=== PATIENT | female | born 1955 | race Caucasian/White ===

== ENCOUNTER 2021-02-01 02:19 | Outpatient (CLI) | payer MEDICARE, SELFPAY ==
[2021-02-01 12:17] LABS: Source Nasal/Nares
[2021-02-01 14:35] LABS: COVID-19 PCR Negative (Negative)
== END 2021-02-01 02:20 | disposition home or self-care (01) ==
LOC: LBO 02:20
PROVIDERS: PCP Registered Nurse; Visit Provider Ophthalmology
DX: Z20.822 Contact with and (suspected) exposure to COVID-19 (principal); Z01.818 Encounter for other preprocedural examination
CPT/HCPCS: 87635

== ENCOUNTER 2021-02-03 10:18 | Day surgery (SDC) | payer MEDICARE, BC, SELFPAY ==
[2021-02-03 10:53] VITALS: BP 151/84; PULSE 60; RESP 16; TEMP 36.5; O2SAT 16
[2021-02-03] MEDS: Tropicam./Phenyleph. (1/2.5%) 5 ML BTL OD ×3 (11:07→11:19)
--- NOTE | 2021-02-03 12:07 | W.ANESPRE ---
General Info Date of Service Date Performed: 02/03/21 Height: 5 ft 6.5 in Weight: 96.1 kg Body Mass Index (BMI): 33.7 Surgical Procedure: Operation Date: 02/03/21 13:40 Proposed Procedures Side Surgeon p Cataract Extraction with IOL Implant Right Yifan Burks MD Meds Allergies and Home Medications Allergies Allergy/AdvReac Type Severity Reaction Status Date / Time No Known Allergies Allergy Unverified 02/02/21 11:48 Home Medication Medication Instructions Recorded diclofenac potassium 50 mg PO TID 02/01/21 metoprolol succinate 100 mg PO DAILY 02/01/21 simvastatin 20 mg PO DAILY 02/01/21 hydrochlorothiazide 25 mg PO DAILY 02/02/21 aspirin 81 mg PO DAILY 02/03/21 Current Visit Medications: Current Medications Generic Name Dose Route Start Last Admin Trade Name Freq PRN Reason Stop Dose Admin Acetaminophen 1,000 mg 02/03/21 06:00 Acetaminophen 500 Mg Tab PO Q4H PRN PRN Miscellaneous Medication 0 ml 02/03/21 06:00 Prednisolone 1%, Moxifloxacin 0.5%, Nepafenac 0.1% 5ml Btl OD DIRECTED [facility] Miscellaneous Medication 0 ml 02/03/21 06:00 02/03/21 11:19 Tropicam./Phenyleph. (1/2.5%) 5 Ml Btl OD 1 drp DIRECTED CESAR Administration Tetracaine HCl 0 ml 02/03/21 06:00 Tetracaine 0.5% 4 Ml Btl OD DIRECTED CESAR PFSH Medical History Medical History Ex-smoker HLD (hyperlipidemia) Hypertensive disorder Macular degeneration Pain in left knee Palpitations Plantar fasciitis of right foot ST segment changes on electrocardiogram Surgical History Surgical History Hx of appendectomy Hx of tubal ligation Tobacco Smoking/Tobacco Use Status: Former Tobacco Use Alcohol Alcohol Intake: current Alcohol intake frequency: 0-2 drinks per day Alcohol type: wine Substance Use Substance use type: does not use Vital Signs and Lab Results Vital Signs Most Recent Vital Signs in EMR: Most Recent Vital Signs Temp Pulse Resp BP Pulse Ox 36.5 C 60 16 151/84 H 16 L 02/03/21 10:53 02/03/21 10:53 02/03/21 10:53 02/03/21 10:53 02/03/21 10:53 Lab Results Blood Type / Crossmatch: No Data to Display Complete Blood Count: No Data to Display Complete Metabolic Panel: No Data to Display Liver Function Panel: No Data to Display Coagulation Panel: No Data to Display Cardiac Panel: No Data to Display Arterial Blood Gas: No Data to Display Venous Blood Gas: No Data to Display Pancreas Panel: No Data to Display Thyroid Panel: No Data to Display Infectious Disease: Coronavirus (COVID-19)(PCR) Negative (Negative) 02/01/21 10:25 02/01/21 Coronavirus 2019 Source Nasal/Nares 02/01/21 10:25 02/01/21 Blood Cultures: No Data to Display Toxicology Panel: No Data to Display Anesthesia Assessment and Plan Anesthesia History Personal History: No History of Anesthesia Complications Family History: No Family History of Anesthesia Complications Exercise Tolerance Exercise Tolerance: Metabolic Equivalents>4 Pertinent Negatives Pertinent Negatives: No Symptoms of GERD, No Major Cardiovascular Symptoms or Complaints and No Major Pulmonary Symptoms or Complaints Cardiac & Pulmonary Exam Cardiac Exam: Normal S1/S2 Heart Sounds Pulmonary Exam: Clear Bilateral Breath Sounds Implantable Cardiac Device Does patient have a Pacemaker or an ICD?: No Airway Exam Known Difficult Airway: No Mallampati Class: 1 Mouth Opening: Normal (> 3cm) Thyromental Distance: Greater than 3 cm Facial Hair: Full [place] Range of Motion: Full ROM Neck Circumference: Normal Teeth Condition: Normal Dentition ASA Classification ASA Score: ASA 2 Emergency Case?: No NPO Status NPO Status: NPO Clears >2 hours, Solids >8 hours Anesthesia Plan Resuscitation Status: Full Code Anesthesia Technique: MAC Anesthesia Airway Planned: Natural Airway Monitors Used: Standard Monitors
[2021-02-03 12:19] VITALS: BMI 33.7
[2021-02-03] MEDS: Tetracaine 0.5% 4 ML BTL OD (12:53)
[2021-02-03] MEDS: Balanced Salt Soln.-PLUS 500 ML BAG (12:54)
[2021-02-03] MEDS: Duovisc Viscoelastic System EACH 1 EACH (12:55)
[2021-02-03] MEDS: Lidocaine 2% Jelly 6 ML SYR (12:56)
[2021-02-03] MEDS: Povidone-Iodine Ophth 30 ML BTL (12:59)
[2021-02-03 13:08] VITALS: BP 134/78; PULSE 63; RESP 16; TEMP 36.8; O2SAT 95
--- NOTE | 2021-02-03 13:08 | W.PM.DSUDISC ---
Discharge Plan Disposition Patient Disposition: HOME Condition: Good Discharge Details Attending Provider: Yifan Burks Primary Care Provider: Alka Singh Home Meds and New Rx's Prescriptions: No Action metoprolol succinate 100 mg Tablet Extended Release 24 Hr 100 mg PO DAILY RF: 0 simvastatin 20 mg Tablet 20 mg PO DAILY RF: 0 diclofenac potassium 50 mg Tablet 50 mg PO TID RF: 0 hydrochlorothiazide 25 mg Tablet 25 mg PO DAILY RF: 0 aspirin 81 mg Tablet 81 mg PO DAILY RF: 0 Discharge Instructions Stand Alone Forms: Post-op Topical Cataract, Hannah Ronquillo ([facility]U) Discharge Orders Discharge Orders: Discharge Order (Routine); Ordered 02/03/21 Ordered By: Yifan Burks DS: Diagnosis Discharge Diagnosis (1) Cortical cataract of right eye: Status: Resolved (2) Nuclear sclerotic cataract of right eye: Status: Resolved (3) Posterior subcapsular age-related cataract, right eye: Status: Resolved
--- NOTE | 2021-02-03 13:11 | ROE_ITS ---
Date of service: 02/03/21 Time of Service: 13:11 Operative Note Operative Note DATE OF PROCEDURE: 02/03/21 PRE-OP DIAGNOSIS: Nuclear/cortical/posterior subcapsular cataract, right eye POST-OP DIAGNOSIS: same PROCEDURE: Cataract extraction using phacoemulsification with intraocular lens implant, right eye SURGEON: Yifan Burks ANESTHESIA TYPE: Local By Surgeon and MAC Refer to Anesthesia Record ESTIMATED BLOOD LOSS: 0 PATHOLOGY: none sent COMPLICATIONS: None Patient was transported to: same day Patient's condition: stable Implants: Alireza & Alireza/LUCIE Tecnis [id number] Indications: Progressive visual loss due to cataract, right eye Procedure Description: CATARACT SURGERY OPERATIVE REPORT PREOPERATIVE DIAGNOSIS: 1. Nuclear/cortical/posterior subcapsular cataract, right eye POSTOPERATIVE DIAGNOSIS: Same OPERATION: 1. Cataract extraction using phacoemulsification with posterior chamber intraocular lens implant, right eye. IOL: IOL Kids Activities Coach/Model: Alireza & Alireza / LUCIE Tecnis [id number] IOL Power: + 19.0 diopters IOL Serial Number: [id number] Optic Diameter: 6.0mm Haptic/Overall Diameter: 13.0mm PHACO INFO: [employer]is [employer] Vision System with OZil and Active Fluidics Cumulative Dispersed Energy (CDE): 12.48 seconds SURGEON: Yifan Burks MD, ISAURA ANESTHESIA: Monitored Anesthesia Care (MAC), with local sub-tenon's anesthetic infiltration COMPLICATIONS: None SPECIMENS: None INDICATIONS FOR PROCEDURE: The patient is a 65-year-old lady with history of diminished visual acuity in her right eye secondary to the development of nuclear/cortical/posterior subcataract. The option of cataract surgery was offered to the patient and she wished to proceed. PROCEDURE: The correct surgical eye was identified and marked as the right eye and the pupil was dilated in the preoperative area using mydriatics and cycloplegics. The dilated pupil size was 7.0 mm. Oral sedation was administered in the form of an Imprimis MKO Melt (midazolam 3mg/ketamine 25mg/ondansetron 2mg). The patient was brought to the operating room where cardiopulmonary monitoring was instituted and surgical time-out was performed, confirming the correct operative eye and IOL power. Topical anesthesia was administered and ophthalmic povidone-iodine 5% was instilled into the conjunctival fornices. Lidocaine gel was applied to the cornea and the deangelo-ocular area was prepped with Betadine 10% solution and draped in the usual sterile fashion for intraocular surgery, including an aperture drape. A Tegaderm transparent film dressing was cut in half and used to cover the lashes and lid margins. Care was taken to sequester the lashes and lid margins under the Tegaderm dressing. A lid speculum was placed between the lids of the operative eye and the Christiane[employer]Jose operating microscope was maneuvered into position. Tonya scissors were then used to make a conjunctival buttonhole approximately 6mm posterior to the limbus in the inferonasal quadrant. Blunt dissection was carried out to expose bare sclera, and a blunt-tipped sub-tenon?s anesthesia cannula was introduced and passed posteriorly along the globe where non- preserved plain lidocaine was injected into posterior sub-Tenon?s space. A sideport knife was used to make a paracentesis port inferotemporally. Intraocular phenylephrine/lidocaine was injected into the anterior chamber. The anterior chamber was filled with viscoelastic. A 2.4mm keratome knife was used to create a half-thickness groove at the limbus and then to construct a three- plane near-clear corneal tunnel extending 2.0mm into clear cornea superiortemporally. A flap was raised on the anterior capsule and capsulorhexis forceps were used to complete a continuous curvilinear capsulorhexis of 5.5 mm. Balanced salt solution was then used to perform cortical cleaving hydrodissection and nuclear hydrodelineation until the lens could be freely rotated within the capsular bag. The lens nucleus was then disassembled and removed within the capsular bag and iris plane using phacoemulsification. Residual cortical material was removed using the I/A handpiece. The posterior capsule was carefully polished to remove as much residual lens epithelial cells as safely possible. The capsular bag was then inflated and the anterior chamber deepened with viscoelastic. The lens implant described above was inserted into the capsular bag using the LUCIE [place] Injector. A Kuglen hook was used to dial the IOL into position. Residual viscoelastic was then removed first from posterior to the IOL, then from the anterior chamber using the I/A handpiece. The lens implant was noted to center nicely within the capsular bag. The incisions were stromally hydrated, and the anterior chamber was reformed using BSS. Then 0.5cc of moxifloxacin 1.0mg/ml were injected into the capsular bag and anterior chamber. The incisions were checked with a Weck spear and found to be secure. Several drops of ophthalmic povidone-iodine 5% were then applied to the eye followed by two drops of Imprimis combination prednisolone/moxifloxacin/nepafenac solution. The drapes were removed and a clear plastic protective eye shield was placed over the eye. The patient was then returned to Same Day Surgery in stable condition.
--- NOTE | 2021-02-03 13:38 | W.ANESPOSTOP ---
Postoperative Evaluation Date, Time and Location Date Performed: 02/03/21 Time Performed: 13:10 Patient Location: Day Surgery Unit Vital Signs Most Recent Imported Vital Signs: Most Recent Vital Signs Temp Pulse Resp BP Pulse Ox 36.8 C 63 16 134/78 95 02/03/21 13:08 02/03/21 13:08 02/03/21 13:08 02/03/21 13:08 02/03/21 13:08 Pain Score Most Recent Pain Score: Most Recent Pain Score Pain Level 0 02/03/21 10:53 Assessment Mental Status: Awake (Alert & Oriented to Patient Baseline) Airway and Respiratory Function: Patent airway with normal (patient baseline) respiratory exam Cardiovascular Function: Hemodynamically Stable Hydration Status: Adequately Hydrated Nausea & Vomiting: No Nausea or Vomiting Pain: Pt. Denies Any Pain Peripheral Nerve Block: Patient did not receive a nerve block
[2021-02-03 13:40] VITALS: BP 124/78; PULSE 65; RESP 16; TEMP 36.9; O2SAT 97
== END 2021-02-03 13:45 | disposition home or self-care (01) ==
PROVIDERS: PCP Registered Nurse; Visit Provider Ophthalmology
PROC: (CPT 66984; principal; 2021-02-03 13:30)
DX: H25.041 Posterior subcapsular polar age-related cataract, right eye (principal); I10 Essential (primary) hypertension; Z87.891 Personal history of nicotine dependence
CPT/HCPCS: 66984; V2632

== ENCOUNTER 2021-02-10 01:02 | Outpatient (CLI) | payer MEDICARE, BC, SELFPAY ==
[2021-02-10 11:12] LABS: Source Nasal/Nares
[2021-02-10 22:07] LABS: COVID-19 PCR Negative (Negative)
== END 2021-02-10 01:03 | disposition home or self-care (01) ==
LOC: LBO 01:03
PROVIDERS: PCP Registered Nurse; Visit Provider Ophthalmology
DX: Z20.822 Contact with and (suspected) exposure to COVID-19 (principal); Z01.818 Encounter for other preprocedural examination
CPT/HCPCS: 87635

== ENCOUNTER 2021-02-13 10:10 | Day surgery (SDC) | payer MEDICARE, BC, SELFPAY ==
[2021-02-13] MEDS: Tropicam./Phenyleph. (1/2.5%) 5 ML BTL OS ×3 (10:47→11:05)
[2021-02-13 10:59] VITALS: BP 146/96; PULSE 57; RESP 16; TEMP 36.6; O2SAT 98
--- NOTE | 2021-02-13 11:11 | W.ANESPRE ---
General Info Date of Service Date Performed: 02/13/21 Height: 5 ft 6.5 in Weight: 96 kg Body Mass Index (BMI): 33.6 Surgical Procedure: Operation Date: 02/13/21 13:40 Proposed Procedures Side Surgeon p Cataract Extraction with IOL Implant Left Yifan Burks MD Meds Allergies and Home Medications Allergies Allergy/AdvReac Type Severity Reaction Status Date / Time No Known Allergies Allergy Unverified 02/13/21 10:58 Home Medication Medication Instructions Recorded diclofenac potassium 50 mg PO TID 02/01/21 metoprolol succinate 100 mg PO DAILY 02/01/21 simvastatin 20 mg PO DAILY 02/01/21 hydrochlorothiazide 25 mg PO DAILY 02/02/21 aspirin 81 mg PO DAILY 02/03/21 Current Visit Medications: Current Medications Generic Name Dose Route Start Last Admin Trade Name Freq PRN Reason Stop Dose Admin Acetaminophen 1,000 mg 02/13/21 06:00 Acetaminophen 500 Mg Tab PO Q4H PRN PRN Miscellaneous Medication 0 ml 02/13/21 06:00 Prednisolone 1%, Moxifloxacin 0.5%, Nepafenac 0.1% 5ml Btl OS DIRECTED CESAR Miscellaneous Medication 0 ml 02/13/21 06:00 02/13/21 11:05 Tropicam./Phenyleph. (1/2.5%) 5 Ml Btl OS 1 drp DIRECTED CESAR Administration Tetracaine HCl 0 ml 02/13/21 06:00 Tetracaine 0.5% 4 Ml Btl OS DIRECTED CESAR PFSH Active Problems Active Problems: Problem Status Onset Code Posterior subcapsular age-related cataract, right eye H25.041 Nuclear sclerotic cataract of right eye H25.11 Cortical cataract of right eye H26.9 Medical History Medical History Ex-smoker HLD (hyperlipidemia) Hypertensive disorder Macular degeneration Pain in left knee Palpitations Plantar fasciitis of right foot ST segment changes on electrocardiogram Surgical History Surgical History Hx of appendectomy Hx of cataract surgery Hx of tubal ligation Tobacco Smoking/Tobacco Use Status: Former Tobacco Use Alcohol Alcohol Intake: current Alcohol intake frequency: 0-2 drinks per day Alcohol type: wine Substance Use Substance use type: does not use Vital Signs and Lab Results Vital Signs Most Recent Vital Signs in EMR: Most Recent Vital Signs Temp Pulse Resp BP Pulse Ox 36.6 C 57 L 16 146/96 H 98 02/13/21 10:59 02/13/21 10:59 02/13/21 10:59 02/13/21 10:59 02/13/21 10:59 Lab Results Blood Type / Crossmatch: No Data to Display Complete Blood Count: No Data to Display Complete Metabolic Panel: No Data to Display Liver Function Panel: No Data to Display Coagulation Panel: No Data to Display Cardiac Panel: No Data to Display Arterial Blood Gas: No Data to Display Venous Blood Gas: No Data to Display Pancreas Panel: No Data to Display Thyroid Panel: No Data to Display Infectious Disease: Coronavirus (COVID-19)(PCR) Negative (Negative) 02/10/21 10:40 02/10/21 Coronavirus 2019 Source Nasal/Nares 02/10/21 10:40 02/10/21 Blood Cultures: No Data to Display Toxicology Panel: No Data to Display Anesthesia Assessment and Plan Anesthesia History Personal History: No History of Anesthesia Complications Family History: No Family History of Anesthesia Complications Exercise Tolerance Exercise Tolerance: Metabolic Equivalents>4 Pertinent Negatives Pertinent Negatives: No Symptoms of GERD Cardiac & Pulmonary Exam Cardiac Exam: Normal S1/S2 Heart Sounds Pulmonary Exam: Clear Bilateral Breath Sounds Implantable Cardiac Device Does patient have a Pacemaker or an ICD?: No Airway Exam Known Difficult Airway: No Mallampati Class: 1 Mouth Opening: Normal (> 3cm) Thyromental Distance: Greater than 3 cm Neck Range of Motion: Full ROM Neck Circumference: Normal Teeth Condition: Normal Dentition ASA Classification ASA Score: ASA 2 Emergency Case?: No NPO Status NPO Status: NPO Clears >2 hours, Solids >8 hours Anesthesia Plan Resuscitation Status: Full Code Anesthesia Technique: MAC Anesthesia Airway Planned: Natural Airway Monitors Used: Standard Monitors Preoperative Comments:: Jyoti noble
[2021-02-13 11:13] VITALS: BMI 33.6
[2021-02-13] MEDS: Tetracaine 0.5% 4 ML BTL OS (11:54)
[2021-02-13] MEDS: Balanced Salt Soln.-PLUS 500 ML BAG (11:55)
[2021-02-13] MEDS: Povidone-Iodine Ophth 30 ML BTL (11:56)
[2021-02-13] MEDS: Duovisc Viscoelastic System EACH 1 EACH (11:56)
[2021-02-13] MEDS: Lidocaine 2% Jelly 6 ML SYR (11:57)
[2021-02-13 12:14] VITALS: BP 108/82; PULSE 64; RESP 16; TEMP 36.5; O2SAT 96
--- NOTE | 2021-02-13 12:15 | W.PM.DSUDISC ---
Discharge Plan Disposition Patient Disposition: HOME Condition: Good Discharge Details Attending Provider: Yifan Burks Primary Care Provider: Alka Singh Home Meds and New Rx's Prescriptions: No Action metoprolol succinate 100 mg Tablet Extended Release 24 Hr 100 mg PO DAILY RF: 0 simvastatin 20 mg Tablet 20 mg PO DAILY RF: 0 diclofenac potassium 50 mg Tablet 50 mg PO TID RF: 0 hydrochlorothiazide 25 mg Tablet 25 mg PO DAILY RF: 0 aspirin 81 mg Tablet 81 mg PO DAILY RF: 0 Discharge Instructions Stand Alone Forms: Post-op Topical Cataract, Hannah Ronquillo ([facility]U) Discharge Orders Discharge Orders: Discharge Order (Routine); Ordered 02/13/21 Ordered By: Yifan Burks DS: Diagnosis Discharge Diagnosis (1) Cortical cataract of left eye: Status: Resolved (2) Nuclear sclerotic cataract of left eye: Status: Resolved
--- NOTE | 2021-02-13 12:16 | ROE_ITS ---
Date of service: 02/13/21 Time of Service: 12:16 Operative Note Operative Note DATE OF PROCEDURE: 02/13/21 PRE-OP DIAGNOSIS: Nuclear/cortical cataract, left eye POST-OP DIAGNOSIS: same PROCEDURE: Cataract extraction using phacoemulsification with intraocular lens implant, left eye SURGEON: Yifan Burks ANESTHESIA TYPE: Local By Surgeon and MAC Refer to Anesthesia Record PATHOLOGY: none sent COMPLICATIONS: None Patient was transported to: same day Patient's condition: stable Implants: Alireza and Alireza / [employer] Tecnis [id number] Indications: Progressive decreased vision due to cataract, left eye Procedure Description: CATARACT SURGERY OPERATIVE REPORT PREOPERATIVE DIAGNOSIS: 1. Nuclear/cortical cataract, left eye POSTOPERATIVE DIAGNOSIS: Same OPERATION: 1. Cataract extraction using phacoemulsification with posterior chamber intraocular lens implant, left eye. IOL: IOL Discharge Door Operator/Model: Alireza & Alireza / LUCIE Tecnis ZCB00 IOL Power: + 20.0 diopters IOL Serial Number: [id number] Optic Diameter: 6.0 mm Haptic/Overall Diameter: 13.0 mm PHACO INFO: [employer] Vision System with OZil and Active Fluidics Cumulative Dispersed Energy (CDE): 8.72 seconds SURGEON: Yifan Burks MD, ISAURA ANESTHESIA: Monitored A [facility] (MAC), with local sub-tenon's anesthetic infiltration COMPLICATIONS: None SPECIMENS: None INDICATIONS FOR PROCEDURE: The patient is a 66-year-old lady with history of diminished visual acuity in both eyes secondary to the development of bilateral nuclear cortical cataract. She has already undergone cataract surgery in the right eye and is doing well postoperatively. She now presents for cataract surgery in the left eye. PROCEDURE: The correct surgical eye was identified and marked as the left eye and the pupil was dilated in the preoperative area using mydriatics and cycloplegics. The dilated pupil size was 7.0 mm. Oral sedation was administered in the form of an Imprimis MKO Melt (midazolam 3mg/ketamine 25mg/ondansetron 2 mg). The patient was brought to the operating room where cardiopulmonary monitoring was instituted and surgical time-out was performed, confirming the correct operative eye and IOL power. Topical anesthesia was administered and ophthalmic povidone-iodine 5% was instilled into the conjunctival fornices. Lidocaine gel was applied to the cornea and the deangelo-ocular area was prepped with Betadine 10% solution and draped in the usual sterile fashion for intraocular surgery, including an aperture drape. A Tegaderm transparent film dressing was cut in half and used to cover the lashes and lid margins. Care was taken to sequester the lashes and lid margins under the Tegaderm dressing. A lid speculum was placed between the lids of the operative eye and the Christiane-Jose operating microscope was maneuvered into position. Tonya scissors were then used to make a conjunctival buttonhole approximately 6mm posterior to the limbus in the inferonasal quadrant. Blunt dissection was carried out to expose bare sclera, and a blunt-tipped sub-tenon?s anesthesia cannula was introduced and passed posteriorly along the globe where non- preserved plain lidocaine was injected into posterior sub-Tenon?s space. A sideport knife was used to make a paracentesis port superiorly/superiortemporally. Intraocular phenylephrine/lidocaine was injected int the anterior chamber.. The anterior chamber was filled with viscoelastic. A 2.4mm keratome knife was used to create a half-thickness groove at the limbus and then to construct a three-plane near-clear corneal tunnel extending 2.0mm into clear cornea at the 3:00 position. A flap was raised on the anterior capsule and capsulorhexis forceps were used to complete a continuous curvilinear capsulorhexis of 5.5 mm. Balanced salt solution was then used to perform cortical cleaving hydrodissection and nuclear hydrodelineation until the lens could be freely rotated within the capsular bag. The lens nucleus was then disassembled and removed within the capsular bag and iris plane using phacoemulsification. Residual cortical material was removed using the 45-degree angled silicone I/A tip with 0.3mm port. The posterior capsule was carefully polished to remove as much residual lens epithelial cells as safely possible. The capsular bag was then inflated and the anterior chamber deepened with viscoelastic. The lens implant described above was inserted into the capsular bag using the LUCIE [place] Injector. A Kuglen hook was used to dial the IOL into position. Residual viscoelastic was then removed first from posterior to the IOL, then from the anterior chamber using the I/A handpiece. The lens implant was noted to center nicely within the capsular bag. The incisions were stromally hydrated, and the anterior chamber was reformed using BSS. Then 0.5cc of moxifloxacin 1.0mg/ml were injected into the capsular bag and anterior chamber. The incisions were checked with a Weck spear and found to be secure. Several drops of ophthalmic povidone-iodine 5% were then applied to the eye followed by two drops of Imprimis combination prednisolone/moxifloxacin/nepafenac solution. The drapes were removed and a clear plastic protective eye shield was placed over the eye. The patient was then returned to Same Day Surgery in stable condition.
--- NOTE | 2021-02-13 12:18 | W.ANESPOSTOP ---
Postoperative Evaluation Date, Time and Location Date Performed: 02/13/21 Time Performed: 12:18 Patient Location: Day Surgery Unit Vital Signs Most Recent Imported Vital Signs: Most Recent Vital Signs Temp Pulse Resp BP Pulse Ox 36.5 C 64 16 108/82 96 02/13/21 12:14 02/13/21 12:14 02/13/21 12:14 02/13/21 12:14 02/13/21 12:14 Pain Score Most Recent Pain Score: Most Recent Pain Score Pain Level 0 02/13/21 12:14 Assessment Mental Status: Awake (Alert & Oriented to Patient Baseline) Airway and Respiratory Function: Patent airway with normal (patient baseline) respiratory exam Cardiovascular Function: Hemodynamically Stable Hydration Status: Adequately Hydrated Nausea & Vomiting: No Nausea or Vomiting Pain: Pt. Denies Any Pain Peripheral Nerve Block: Patient did not receive a nerve block
[2021-02-13 12:50] VITALS: BP 118/77; PULSE 71; RESP 16; TEMP 36.8; O2SAT 96
== END 2021-02-13 12:55 | disposition home or self-care (01) ==
PROVIDERS: PCP Registered Nurse; Visit Provider Ophthalmology
PROC: (CPT 66984; principal; 2021-02-13 13:30)
DX: H25.12 Age-related nuclear cataract, left eye (principal); I10 Essential (primary) hypertension; Z87.891 Personal history of nicotine dependence
CPT/HCPCS: 66984; V2632

== ENCOUNTER → 2023-09-11 00:10 | Outpatient (CLI) | payer MEDICARE, BC, SELFPAY ==
--- NOTE | 2023-09-11 | DI.US_ITS ---
APPROVED REPORT EXAM: Comprehensive 2D, Doppler, and color-flow Echocardiogram Patient Location: Out-Patient [facility] Operator: Erlinda Bianchi RDCS (AE) Indications: Dizziness, SOB Other Information Study Quality: Adequate Conclusion Normal left ventricular wall thickness and chamber size. Ejection fraction is 60%. Wall motion is n ormal Normal right ventricular size and function Both atria are normal in size There is no structural or hemodynamically significant valvular disease Wall motion Left Ventricle The left ventricle is normal size. The left ventricular systolic function is normal. The left ventric ular ejection fraction is within the normal range. There is normal left ventricular wall thickness. T here is normal LV segmental wall motion. There is no ventricular septal defect visualized. LVEF is 60 %. Right Ventricle The right ventricle is normal size. The right ventricular systolic function is normal. Atria The left atrium size is normal. The right atrium size is normal. The interatrial septum is intact wit h no evidence for an atrial septal defect. Aortic Valve The aortic valve is normal in structure. Aortic valve is trileaflet. There is no aortic valvular sten osis. No aortic regurgitation is present. Mitral Valve The mitral valve is normal in structure. No evidence of mitral valve stenosis. Trace mitral regurgita tion. Tricuspid Valve The tricuspid valve is normal in structure. There is no tricuspid valve stenosis. Trace tricuspid reg urgitation. Unable to assess PA pressure. Pulmonic Valve The pulmonary valve is normal in structure. There is no pulmonic valvular stenosis. Trace to mild pul rita regurgitation. Great Vessels The aortic root is normal in size. The ascending aorta is borderline dilated. Aortic arch is normal i n caliber. IVC is normal in size and collapses >50% with inspiration. Pericardium There is no pericardial effusion. 2D Dimensions IVSD d PLAX 0.92 cm F: 0.6-1.0 Ao Root d 2.99 cm F: 2.7 - 3.3 LVPW d PLAX 0.93 cm F: 0.6 - 1.0 Ao Asc Diam d 3.35 cm F: 2.3 - 3.1 LVID d PLAX 4.69 cm F: 3.8 - 5.2 LVDs 3.26 cm F: 2.2 - 3.5 LV EF Teichholz 58.1 % FS 30.62 % LV EDV (Teich) 102.1 mL LV ESV (Teich) 42.8 mL M-Mode TAPSE 1.69 cm (M/F) >1.7 Auto EF LV EDV A4C 85.0 mL LV EDV A2C 84.7 mL LV EDV BP 85.6 mL LV ESV A4C 33.8 mL LV ESV A2C 35.1 mL LV ESV BP 34.6 mL LVEF(%) A4C 60.3 % LVEF(%) A2C 58.6 % LVEF(%) BP 59.6 % LV SV A4C 51.3 ml LV SV A2C 49.7 ml LV SV BP 51.1 ml LV CO A4C 3.3 L/min LV CO A2C 3.6 L/min LV CO BP 3.5 L/min HR A4C 64.87 BPM HR A2C 72.73 BPM LV EDV Index (BP) LA Volume LA Length A4C 5.7 cm LA Length A2C 5.9 cm LA Area A4C s 20.68 cm2 LA Area A2C s 17.37 cm2 LA Vol A4C A-L 63.47 mL LA Vol A2C A-L 43.42 mL LA Vol Biplane A-L 53.3 mL LA Vol/BSA A4C A-L LA Vol/BSA A2C A-L LA Vol/BSA BP A-L 25.5 mL/m2 LA Vol A4C MOD 57.4 mL LA Vol A2C MOD 41.0 mL LA Vol BP MOD 49.0 mL RA Volume RA Area A4C 15.6 cm2 RA ESV A4C (A-L) 41.3mL RA Vol/BSA A4C A-L RA Length A4C 5.0 cm RA ESV A4C (MOD) 38.6mL LV Diastology MV E' medial 0.082 (>0.07 m/s) MV E Vmax 0.76 (0.4-1.3 m/s) MV E/E' MED 9.22 (<14) MV A Vmax 0.85 (0.4-1.3 m/s) MV E' lateral 0.097 (>0.1 m/s) E/A Ratio 0.9 MV E/E' LAT 7.78 (<14) MV E' Average 0.090 m/s MV E/E'(average) 8.44 Aortic Valve AoV Vmax 1.25 m/s LVOT Vmax 1.03 m/s AoV Peak Grad 6.3 mmHg LVOT Peak Grad 4.2 mmHg AoV Area (Vmax) 2.28 cm2 LVOT VTI 0.215 m AoV VTI 0.294 m LVOT Mean Grad 2.1 mmHg AoV Mean Oumar. 0.86 m/s LVOT SV 59.89 mL AoV Mean Grad 3.4 mmHg LVOT Diam s 1.85 cm AoV Area (VTI) 2.04 cm2 Velocity Ratio 0.82 Mitral Valve MV DT 211 (160-240 msec) MV Vmax TIPS 0.83 m/s MV Mean Grad 1.2 (<2mmHg) MV VTI 0.325 m Pulmonary Valve PV Vmax 0.81 (0.5-1.5 m/s) RVOT Vmax 0.78 m/s PV Peak Grad 2.6 mmHg RVOT Peak Gr. 2.4 mmHg PV Mean Oumar 0.64 m/s RVOT VTI 0.197 m PV Mean Grad 1.8 mmHg RVOT Mean Gr. 1.3 mmHg Tricuspid Valve RA Pressure 3.00 mmHg TV S' 0.11 m/s
== END ==
PROVIDERS: PCP Registered Nurse; Visit Provider Nurse Practitioner Family
DX: R06.02 Shortness of breath (principal)
CPT/HCPCS: 93306